=== PATIENT | male | born 1960 | race Caucasian/White ===

== ENCOUNTER 2024-02-25 16:07 | Emergency (ER) | payer MEDICARE, SELFPAY ==
--- NOTE | ~2024-02-25 | XR_ITS ---
EXAMINATION: XR hip RT 2V w AP pelvis DATE: 02/25/2024 16:33 INDICATION: Right hip pain. Fall. TECHNIQUE: An anteroposterior view of the pelvis and 2 views of right hip were obtained. COMPARISON: None. FINDINGS: There is a bipolar right hip hemiarthroplasty in near-anatomic alignment. No fracture. No p eriprosthetic lucency to suggest loosening or infection. There is mild left hip osteoarthritis. There is mild lumbar spondylosis. IMPRESSION: 1. Bipolar right hip hemiarthroplasty in near-anatomic alignment. 2. Mild left hip osteoarthritis. Reviewed, dictated and finalized at location A.
[2024-02-25 16:09] VITALS: BP 158/82; PULSE 75; RESP 16; TEMP 36.8; O2SAT 99
--- NOTE | 2024-02-25 16:37 | ED.FALL ---
HPI - Fall General Chief Complaint: Fall Stated Complaint: right hip injury post fall Time Seen by Provider: 02/25/24 16:15 History of Present Illness HPI Narrative: 63-year-old male history of right hip hemiarthroplasty in September presents to the emergency room for evaluation of right hip pain sustained in a mechanical ground level fall yesterday. Patient states that he tripped and fell landing on his right side. He has been experiencing hip pain since. Patient states he has been ambulatory since the injury. Related Data Allergies Allergy/AdvReac Type Severity Reaction Status Date / Time No Known Allergies Allergy Verified 02/25/24 16:20 Review of Systems Review of Systems: ROS unremarkable except for stated in the HPI Exam Narrative: GENERAL: Well-appearing, well-nourished, no physical limitations, and in no acute distress. HEAD: Normocephalic, atraumatic. EYES: Conjunctivae normal, PERRLA and EOMI. CHEST: Clear to auscultation. No respiratory distress. No wheezes rales or rhonchi. HEART: Regular rate and rhythm. No murmur heard. Normal peripheral pulses. EXTREMITIES: Right hip: +TTP over the greater trochanter, pain with hip adduction/abduction. No evidence of limb shortening or internal rotation SKIN: Warm, dry, no rash. No noted wounds NEURO: No focal deficits. Alert and oriented x3. MAEW. CN's II-XI intact bilaterally, normal gait PSYCH: Cooperative. Normal mood and affect. Course Vital Signs Vital signs: Vital Signs Temperature 36.8 C 02/25/24 16:09 Pulse Rate 75 02/25/24 16:09 Respiratory Rate 16 02/25/24 16:09 Blood Pressure 158/82 H 02/25/24 16:09 Pulse Oximetry 99 02/25/24 16:09 Temperature 36.8 C 02/25/24 16:09 Pulse Rate 75 02/25/24 16:09 Respiratory Rate 16 02/25/24 16:09 Blood Pressure 158/82 H 02/25/24 16:09 Pulse Oximetry 99 02/25/24 16:09 MDM - Fall Imaging Data Radiologist's impression: Impressions Hip/Pelvis X-Ray 02/25/24 16:33 IMPRESSION: 1. Bipolar right hip hemiarthroplasty in near-anatomic alignment. 2. Mild left hip osteoarthritis. Discharge Plan Discharge Clinical Impression: Contusion of hip, right Patient Disposition: Home, Self-Care Condition: Stable Instructions: Antibiotic Form, Contusion in Adults (ED) Prescriptions: New naproxen 500 mg tablet 500 mg PO BID Qty: 30 0RF Follow-up/Referrals: Chris,MD Angel [Primary Care Provider] - Time of Disposition: 16:45
== END 2024-02-25 16:55 | disposition home or self-care (01) ==
PROVIDERS: Emergency Provider Nurse Practitioner Family; PCP Internal Medicine
DX: S70.11XA Contusion of right thigh, initial encounter (principal); W18.30XA Fall on same level, unspecified, initial encounter
CPT/HCPCS: 73502; 99283

== ENCOUNTER 2024-07-10 09:31 | Emergency (ER) | payer MEDICARE, SELFPAY ==
[2024-07-10 09:38] VITALS: BP 132/82; PULSE 77; RESP 18; TEMP 36.4; O2SAT 99
--- NOTE | 2024-07-10 10:14 | ED.EYEPROB ---
HPI - Eye Problem General Chief complaint: Eye Problems Stated complaint: left eye redness, denies injury Time Seen by Provider: 07/10/24 10:01 History of Present Illness HPI Narrative: 4-year-old male with a history of hypertension, hyperlipidemia, diabetes presenting with red eye. States that yesterday he noticed a small area of dark red blood in the lateral aspect of his left eye. Today he woke up and the redness had spread so they came in for evaluation. States that maybe his vision seems a bit blurrier than normal. No contacts or glasses used. Denies recent trauma. No further complaints. Related Data Home Medications Medication Instructions Recorded Confirmed aspirin 81 mg capsule 81 mg PO DAILY 03/08/24 atorvastatin 80 mg tablet 80 mg PO DAILY 03/08/24 carvedilol 6.25 mg tablet 6.25 mg PO Q12H 03/08/24 lisinopril 40 mg tablet 40 mg PO DAILY 03/08/24 metformin 500 mg tablet 500 mg PO BID 03/08/24 naproxen 500 mg tablet 500 mg PO BID PRN 03/08/24 Allergies Allergy/AdvReac Type Severity Reaction Status Date / Time No Known Allergies Allergy Verified 07/10/24 09:45 Review of Systems Review of Systems: All systems reviewed & are unremarkable except as noted in HPI and below PMFSH Past Medical History Medical History Contusion of hip, right Diabetes History of stroke Hypertension Surgical History Surgical History History of right hip replacement Family History Family History Father Hypertension Heart disease Social History Social History Smoking status: Never smoker Alcohol intake: current Alcohol use details: occasional Substance use type: does not use Do You Feel Safe in your Home?: Yes Lack of Transportation: No Lack of Food: Never True Current Housing: I Have Housing Concerned About Future Housing: No Difficulty Paying Gas/Electric Bills: No Difficulty Paying for Meds: No Education: Trade/Vocational Certificate Difficulty w/ Childcare or Family Care: No Living arrangements: with family Occupation/Education: retired Exam Narrative: GENERAL: Well-appearing, well-nourished, and in no acute distress. HEAD: Normocephalic, atraumatic. EYES: PERRLA and EOMI. Left eye with lateral subconjunctival hemorrhage ENT: Mucous membranes moist. NECK: Supple. CHEST: No respiratory distress. HEART: Regular rate and rhythm EXTREMITIES: Normal range of motion SKIN: Warm, dry, no rash. NEURO: Alert and oriented x3. PSYCH: Normal mood and affect. Course Vital Signs Vital signs: Vital Signs Temperature 97.6 F 07/10/24 09:38 Pulse Rate 77 07/10/24 09:38 Respiratory Rate 18 07/10/24 09:38 Blood Pressure 132/82 07/10/24 09:38 Pulse Oximetry 99 07/10/24 09:38 Oxygen Delivery Room Air 07/10/24 09:38 Temperature 97.6 F 07/10/24 09:38 Pulse Rate 70 07/10/24 11:45 Respiratory Rate 18 07/10/24 11:45 Blood Pressure 129/77 07/10/24 11:45 Pulse Oximetry 99 07/10/24 11:45 Oxygen Delivery Room Air 07/10/24 09:38 MDM - Eye Problem MDM Narrative Medical decision making narrative: 64-year-old male presenting with left red eye. Vitals within normal limits. Exam remarkable for the above. Consistent with subconjunctival hemorrhage. Visual acuity 20/25 on the right, 20/50 on the left. Discussed appropriate supportive care and follow-up. Patient is agreeable with plan. Discharged in stable condition. Differential Diagnosis Differential diagnosis: Likely conjunctivitis and subconjunctival hemorrhage Medical Records Attestation: I reviewed the patient's medical records. Critical Care Time Critical Care Time Critical Care Time: No Discharge Plan Discharge Clinical Impression:
[2024-07-10 11:45] VITALS: BP 129/77; PULSE 70; RESP 18; O2SAT 99
== END 2024-07-10 11:47 | disposition home or self-care (01) ==
PROVIDERS: Emergency Provider Emergency Medicine; PCP Internal Medicine
DX: H11.31 Conjunctival hemorrhage, right eye (principal); I10 Essential (primary) hypertension; E78.5 Hyperlipidemia, unspecified; E11.9 Type 2 diabetes mellitus without complications; Z96.641 Presence of right artificial hip joint; Z86.73 Personal history of transient ischemic attack (TIA), and cerebral infarction without residual deficits; Z79.82 Long term (current) use of aspirin; Z79.84 Long term (current) use of oral hypoglycemic drugs; Z79.899 Other long term (current) drug therapy
CPT/HCPCS: 99282

== ENCOUNTER 2024-09-06 12:06 | Outpatient (CLI) | payer MEDICARE, SELFPAY ==
--- NOTE | ~2024-09-06 | DEXA_ITS ---
Bone Density Report Name: GABY PRICE Age: 64 Sex: Male Ethnicity: White Date of : 1960 Indication: prior fracture; Referring Provider: JESSICAEDE Prince Study: Bone densitometry was performed. Exam Date: September 06, 2024 Accession number: [id number] Bone Density: Region BMD T-score Z-score Classification AP Spine(L1-L4) 0.887 -1.9 -1.1 Osteopenia Femoral Neck (Left) 0.629 -2.2 -1.1 Osteopenia Total Hip (Left) 0.903 -0.9 -0.3 Normal World Health Organization criteria for BMD impression classify patients as: Normal (T-score at or above -1.0), Osteopenia (T-score between -1.0 and -2.5), or Osteoporosis (T-score at or below -2.5). 10-year Fracture Risk: FRAX not reported because: Prior hip or vertebral fracture Clinical Information Provided by Patient: Have had a previous hip or vertebral fracture Has had a low trauma fracture Impression: The patient has low bone mass, based on the Left Femoral Neck T-score. The patient has risk factors, including: previous fracture. Discussion: INCREASED RISK OF FRACTURE DUE TO HISTORY OF LOW TRAUMA FRACTURE. The patient's previous fracture puts the patient at high risk of a future fracture. In untreated patients, the risk of osteoporotic fracture increases approximately two-fold for each 1.0 SD decrease in T-score. Low bone density is not the only risk factor for fracture; also consider factors such as patient's age, frailty or poor health, risk of falling, risk of injury, previous osteoporotic fracture, family history of osteoporosis, cigarette smoking, low body weight, etc. Not everyone with a low trauma fracture has osteoporosis; osteomalacia and other metabolic bone disorders should also be considered. Patients who have osteoporosis should be evaluated for specific diseases and conditions (secondary causes) that may cause or contribute to bone loss and fracture risk. National Osteoporosis Foundation (NOF) recommends pharmacologic intervention for patients with a prior low trauma hip or vertebral fracture regardless of BMD T-score. The patient should follow a healthful lifestyle (good nutrition with adequate calcium and vitamin D, and appropriate weight-bearing exercise). Follow-Up: Consider a repeat BMD and Vertebral Fracture Assessment (VFA) exam in 2 years or sooner if medically necessary, to reassess this patient's status. Reported by: ALISTAIR on 09/06/2024 12:44:00 PM. Reviewed, dictated and finalized at location AIam CONTRERAS
== END 2024-09-06 12:07 | disposition home or self-care (01) ==
LOC: ANHIMG 12:14
PROVIDERS: PCP Internal Medicine; Visit Provider Internal Medicine
DX: Z87.81 Personal history of (healed) traumatic fracture (principal); M85.88 Other specified disorders of bone density and structure, other site; M85.852 Other specified disorders of bone density and structure, left thigh
CPT/HCPCS: 77080

== ENCOUNTER 2025-08-13 16:23 | Emergency (ER) | payer MEDICARE, SELFPAY ==
--- NOTE | ~2025-08-13 | XR_ITS ---
EXAMINATION: XR hand RT min 3V, 08/13/2025 16:50 REWEAVER HISTORY: open fractures COMPARISON: No comparisons available. Findings: Severe osteopenia. There is a slightly displaced fracture of the distal aspect proximal phalanx fifth digit with a displaced fracture noted also of the proximal aspect intermediate phalanx fifth digit with significant soft tissue swelling and involvement of the adjacent joint space. Moderate to severe degenerative changes of the joints. Soft tissues unremarkable. Impression: Fractures detailed above. Underlying osteomyelitis with septic arthritis is not excluded. Contrast-enhanced MRI is suggested Reviewed, dictated and finalized at location P. AVER Impression: Fractures detailed above. Underlying osteomyelitis with septic arthritis is not excluded. Contrast-enhanced MRI is suggested
--- NOTE | 2025-08-13 16:29 | PC.NURSE ---
tourniquet applied in triage
[2025-08-13 16:32] VITALS: BP 145/86; PULSE 71; RESP 18; TEMP 36.4; O2SAT 98
--- NOTE | 2025-08-13 16:42 | PC.NURSE ---
Tourniquet removed by Dr. Zeng at 1642. Bleeding controlled at this time.
--- NOTE | 2025-08-13 16:49 | ED_ITS ---
HPI - Wound/Laceration General Chief Complaint: Wound/Laceration Stated Complaint: cut finger Time Seen by Provider: 08/13/25 16:44 History of Present Illness HPI narrative: Patient is a 65-year-old male who presents ER with lacerations to the right hand and digits 4 and 5 at the PIP dorsal aspect. Unable to extend at these joints. He maintains sensation distal to the laceration. Is unsure when his last tetanus shot was. He was using a circular table saw to do some woodwork when and he is unsure what happened but lost control and lacerated his fingers. He is not on any blood thinning agents. Related Data Home Medications ?Medication ?Instructions ?Recorded ?Confirmed ?Last Taken ?Type aspirin 81 mg capsule 81 mg PO DAILY 03/08/24 Unk nown History atorvastatin 80 mg tablet 80 mg PO DAILY 03/08/24 Unk nown History carvedilol 6.25 mg tablet 6.25 mg PO Q12H 03/08/24 Un known History lisinopril 40 mg tablet 40 mg PO DAILY 03/08/24 Unk nown History metformin 500 mg tablet 500 mg PO BID 03/08/24 Unkn own History naproxen 500 mg tablet 500 mg PO BID PRN 03/08/24 Unknown History Allergies Allergy/AdvReac Type Severity Reaction Status Date / Time No Known Allergies Allergy Verified 08/13/25 16:32 Review of Systems 2 Review of Systems: All systems reviewed & are unremarkable except as noted in HPI and below Constitutional: Constitutional: Reports no additional constitutional complaints Cardiovascular: Cardiovascular: Reports no additional cardiovascular complaints Musculoskeletal: Musculoskeletal: Reports no additional musculoskeletal complaints Integumentary/Breasts: Skin/Breast: Reports system reviewed and no additional complaints, except as docu Neurologic: Reports system reviewed and no additional complaints, except as documented [facility] Past Medical History Medical History Contusion of hip, right Diabetes History of stroke Hypertension Surgical History Surgical History History of right hip replacement Family History Family History Father Hypertension Heart disease Social History Social History Smoking status: Never smoker Alcohol intake: current Alcohol use details: occasional Substance use type: does not use Do You Feel Safe in your Home?: Yes Lack of Transportation: No Lack of Food: Never True Current Housing: I Have Housing Concerned About Future Housing: No Difficulty Paying Gas/Electric Bills: No Difficulty Paying for Meds: No Education: Trade/Vocational Certificate Difficulty w/ Childcare or Family Care: No Living arrangements: with family Occupation/Education: retired Exam 2 Narrative: GENERAL: Well-appearing, well-nourished, and in no acute distress. HEAD: Normocephalic, atraumatic. ENT: Mucous membranes moist. CHEST: Clear to auscultation. No respiratory distress. HEART: Regular rate and rhythm. Normal peripheral pulses. EXTREMITIES: Right hand with laceration to the dorsal aspect of fingers 4 and 5 at the the PIP. Unable to extend at these joints, sensation and cap refill preserved proximally and distally (volar/dorsal). Laceration results in open fracture and violation of the PIP joints of finger 4/5. SKIN: Warm, dry, wound described above. NEURO: Alert and oriented x3. PSYCH: Normal mood and affect. Course Course Emergency Course: Discussed with [facility]. Accepted by Dr. Martinez in the ER, also discussed with Dr. Farah with hand surgery. Patient was given IV Ancef 2 g IV as well as the a tetanus shot. Vital Signs Vital signs: Vital Signs Temperature 97.6 F 08/13/25 16:32 Pulse Rate 71 08/13/25 16:32 Respiratory Rate 18 08/13/25 16:32 Blood Pressure 145/86 H 08/13/25 16:32 Pulse Oximetry 98 08/13/25 16:32 Oxygen Delivery Room Air 08/13/25 16:32 Temperature 98.2 F 08/13/25 17:25 Pulse Rate 84 08/13/25 17:25 Respiratory Rate 16 08/13/25 17:25 Blood Pressure 134/53 L 08/13/25 17:25 Pulse Oximetry 95 08/13/25 17:25 Oxygen Delivery Room Air 08/13/25 16:32 MDM - Wound/Laceration Differential Diagnosis Differential diagnosis: Likely laceration and other (Open fracture, tendon injury, nerve injury, vascular injury) Lab Data Attestation: I reviewed the patient's lab results. 08/13/25 17:02 08/13/25 17:02 Labs: Lab Results 08/13/25 08/13/25 08/13/25 Range/Units 17:02 17:02 17:02 WBC 9.8 (4.5-10.0) K/mm3 RBC 4.48 L (4.6-6.20) M/mm3 Hgb 14.1 (14.0-18.0) g/dL Hct 42.4 (42.0-52.0) % MCV 94.6 (80-100) fl MCH 31.5 (26-34) pg MCHC 33.3 (32-36) g/dl RDW 12.3 (11.5-14.5) % Plt Count 279 (150-375) k/mm3 MPV 10.3 (7.4-10.4) fl Immature Gran % (Auto) 0.3 (0-0.5) % Neut % (Auto) 69.2 (45.5-73.1) % Lymph % (Auto) 19.1 (18.3-44.2) % [place] % (Auto) 7.6 (2.6-8.5) % Eos % (Auto) 2.8 (0-4.4) % Baso % (Auto) 1.0 (0.2-1.2) % Lymph # (Auto) 1.88 (0.9-3.2) K/mm3 [place] # (Auto) 0.8 H (0.1-0.6) K/mm3 Eos # (Auto) 0.3 (0-0.3) K/mm3 Baso # (Auto) 0.1 (0.0-0.1) K/mm3 Abs Immat Gran (auto) 0.03 (0.00-0.031) K/mm3 Absolute Neuts (auto) 6.8 H (1.3-6.7) K/mm3 Absolute Nucleated RBC 0.000 (0.0-0.012) K/mm3 Nucleated RBC % 0.0 (0.0-0.2) % PT 13.1 Cancelled (11.1-14.7) Seconds INR 1.0 Cancelled APTT 26.8 (22.3-36.8) Seconds Sodium 138 (137-145) mmol/L Potassium 4.4 (3.4-5.0) mmol/L Chloride 107 (98-107) mmol/L Carbon Dioxide 22 (22-30) mmol/L Anion Gap 9 (4-12) mmol/L BUN 14 (9-20) mg/dL Creatinine 0.91 (0.7-1.3) mg/dL Estim Creat Clear Calc 73 ml/min Estimated GFR > 60 (59 - ) Glucose 110 (65-110) mg/dL Calcium 9.0 (8.4-10.2) mg/dL Total Bilirubin 1.7 H (0.2-1.3) mg/dL AST 33 (17-59) U/L ALT 29 (6-50) U/L Alkaline Phosphatase 70 (38-126) U/L Total Protein 7.1 (6.3-8.2) g/dL Albumin 4.1 (3.5-5.1) g/dL Imaging Data Radiologist's impression: ITS Impressions Hand X-Ray 08/13/25 16:56 Impression: Fractures detailed above. Underlying osteomyelitis with septic arthritis is not excluded. Contrast-enhanced MRI is suggested Critical Care Time Critical Care Time Critical Care Time: Yes Total Critical Care Time: 35 Discharge Plan Discharge Clinical Impression: Open fracture of finger of right hand, Disarticulation of finger excluding thumb, Injury of extensor tendon of right hand Patient Disposition: Acute Care Hospital Condition: Stable Patient Language: [place] Prescriptions: No Action aspirin 81 mg capsule 81 mg PO DAILY carvedilol 6.25 mg tablet 6.25 mg PO Q12H Rx Instructions: must administer with a meal/food metformin 500 mg tablet 500 mg PO BID lisinopril 40 mg tablet 40 mg PO DAILY atorvastatin 80 mg tablet 80 mg PO DAILY naproxen 500 mg tablet 500 mg PO BID PRN Follow-up/Referrals: Chris,MD Angel [Primary Care Provider]
[2025-08-13] MEDS: MORPHINE SULFATE (*CRX) 4 MG/ML INJ IV PUSH (16:53)
[2025-08-13] MEDS: ceFAZolin 2 GM in SODIUM CHLORIDE 0.9% IV 50 ML 100 ML IVPB (16:53)
[2025-08-13 17:09] LABS: Hematocrit 42.4 % (42.0-52.0); Hemoglobin 14.1 g/dL (14.0-18.0); Immature Granulocyte Percent A 0.3 % (0-0.5); Lymphocytes Absolute Auto 1.88 K/mm3 (0.9-3.2); Mean Corpuscular HGB Conc 33.3 g/dl (32-36); Mean Corpuscular Hemoglobin 31.5 pg (26-34); Mean Corpuscular Volume 94.6 fl (80-100); Nucleated Red Blood Cells Absolute Auto 0.000 K/mm3 (0.0-0.012); Nucleated Red Blood Cells Perc 0.0 % (0.0-0.2); Platelet Count Result 279 k/mm3 (150-375); Red Blood Count 4.48 M/mm3 (4.6-6.20); White Blood Count 9.8 K/mm3 (4.5-10.0)
[2025-08-13] MEDS: WATER FOR IRRIGATION, STERILE 500 ML BOTTLE (17:19)
[2025-08-13] MEDS: TETANUS,DIPHTHERIA,AC PERTUSSIS ADULT (0.5 ML) BOOSTRIX IM (17:19)
[2025-08-13 17:21] LABS: INR 1.0; Partial Thromboplastin Time 26.8 Seconds (22.3-36.8); Prothrombin Time 13.1 Seconds (11.1-14.7)
--- NOTE | 2025-08-13 17:22 | PC.NURSE ---
96% PULSE OX ON RIGHT LITTLE FINGER 96% PULSE OX ON RIGHT RING FINGER
[2025-08-13 17:25] VITALS: BP 134/53; PULSE 84; RESP 16; TEMP 36.8; O2SAT 95
[2025-08-13 17:36] LABS: Alanine Aminotransferase 29 U/L (6-50); Albumin Level 4.1 g/dL (3.5-5.1); Alkaline Phosphatase 70 U/L (38-126); Anion Gap 9 mmol/L (4-12); Aspartate Amino Transferase 33 U/L (17-59); Bilirubin,Total 1.7 mg/dL (0.2-1.3); Blood Urea Nitrogen 14 mg/dL (9-20); Calcium 9.0 mg/dL (8.4-10.2); Carbon Dioxide 22 mmol/L (22-30); Chloride 107 mmol/L (98-107); Estimated CRCL calculation 73 ml/min; Estimated Glomerular Filt Rate > 60; Glucose 110 mg/dL (65-110); Potassium 4.4 mmol/L (3.4-5.0); Sodium 138 mmol/L (137-145); Total Protein 7.1 g/dL (6.3-8.2)
[2025-08-13 18:21] VITALS: BP 119/71; PULSE 60; RESP 16; O2SAT 97
== END 2025-08-13 19:25 | disposition short-term general hospital (02) ==
PROVIDERS: Emergency Provider Emergency Medicine; PCP Internal Medicine
DX: S62.616B Displaced fracture of proximal phalanx of right little finger, initial encounter for open fracture (principal); S62.626B Displaced fracture of middle phalanx of right little finger, initial encounter for open fracture; S66.326A Laceration of extensor muscle, fascia and tendon of right little finger at wrist and hand level, initial encounter; S66.322A Laceration of extensor muscle, fascia and tendon of right middle finger at wrist and hand level, initial encounter; Z23 Encounter for immunization; I10 Essential (primary) hypertension; E11.9 Type 2 diabetes mellitus without complications; Z86.73 Personal history of transient ischemic attack (TIA), and cerebral infarction without residual deficits; Z96.641 Presence of right artificial hip joint; Z79.899 Other long term (current) drug therapy; Z79.82 Long term (current) use of aspirin; Z79.84 Long term (current) use of oral hypoglycemic drugs; W31.2XXA Contact with powered woodworking and forming machines, initial encounter
CPT/HCPCS: 36415; 73130; 80053; 85025; 85610; 85730; 90471; 90715; 96365; 96375; 99285; J0690; J2004; J2270; J7030

== ENCOUNTER 2025-09-06 11:44 | Outpatient (CLI) | payer MEDICARE, SELFPAY ==
--- OUTSIDE RECORDS SUMMARY | 2025-09-05 09:05 | XMS_ITS | Encounter Summary ---
Author Organization [facility] Address [address] [place] [address] Care Team Providers Care Slot Machine Key Person Name Role Phone Angel Perez MD Primary Care Provider [phone] Encounter Details Date Type Department Care Team (Latest Contact Info) Description 09/05/2025 9:05 AM RESIDENTIAL PROGRAM WORKER - 09/05/2025 11:59 PM [facility] Hospital Encounter [facility] Imaging Services - Radiology [address] [place] [address] Angel Liu MD [address] [place] [address] [place] [address] Plastic Surgery Discharge Disposition: Home or Self Care Social History Tobacco Use Types Packs/Day Years Used Date Smoking Tobacco: Never Smokeless Tobacco: Never Alcohol Use Standard Drinks/Week Comments Yes 0 (1 standard drink = 0.6 oz pur e alcohol) socially PHQ-2 Answer Date Recorded Patient Health Questionnaire-2 Score 3 08/22/2025 Sex and Gender Information Value Date Recorded Sex Assigned at Male 08/13/2025 8:05 PM RESIDENTIAL PROGRAM WORKER Legal Sex Male 3:30 AM CDT Gender Identity Not on file Sexual Orientation Not on file documented as of this encounter Functional Status * Is person deaf or have serious hearing difficulty? Answer Date of Assessment Author No 12/26/2018 10:45 AM CDT Liset Zaragoza RN * Is person blind or have serious difficulty seeing? Answer Date of Assessment Author No 12/26/2018 10:45 AM CDT Liset Zaragoza RN * Does person have serious difficulty walking/climbing stairs? Answer Date of Assessment Author Yes 12/26/2018 10:45 AM Liset Nevarez RN * Does person have difficulty dressing/bathing? Answer Date of Assessment Author Yes 12/26/2018 10:45 AM Liset Nevarez RN * Does person have difficulty doing errands alone? Answer Date of Assessment Author No 12/26/2018 10:45 AM Liset Nevarez RN documented as of this encounter Mental Status * Does person have difficulty concentrating/remembering/making decisions? Answer Entry Date Author No 12/26/2018 10:45 AM Liset Nevarez RN documented in this encounter Medications at Time of Discharge aspirin (ASPIRIN) 81 MG chew tablet Take 1 tablet by mouth once daily 02/11/2019 atorvastatin (LIPITOR) 80 MG tablet Take 1 tablet by mouth at bedtime 30 tablet 3 02/11/2019 carvedilol (COREG) 6.25 MG tablet Take 1 tablet by mouth every 12 hours 30 tablet 3 02/11/2019 cyanocobalamin (Vitamin B-12) 100 MCG tablet Take 1 (one) tablet by mouth once daily lisinopril (PRINIVIL; ZESTRIL) 40 MG tablet Take 1 tablet by mouth once daily 30 tablet 3 02/11/2019 metFORMIN (GLUCOPHAGE) 500 MG tablet metformin 500 mg tablet Take 1 tablet twice a day by oral route for 90 days. oxyCODONE-acetam inophen (Percocet) 5-325 MG tabletIndication s:Open displaced fracture of middle phalanx of right little finger, initial encounter,Lacera tion of right ring finger, foreign body presence unspecified, nail damage status unspecified, initial encounter,Open displaced fracture of middle phalanx of right ring finger, initial encounter Take 1 (one) tablet by mouth every 6 hours as needed for pain (caution: can cause sedation/consti pation) 10 tablet 08/14/2025 rosuvastatin (CRESTOR) 10 MG tablet every 24 hours vitamin D, ergocalciferol, (Drisdol) 1.25 MG (57136 UT) capsule Take 1 (one) capsule by mouth every 7 days (once a week) 06/13/2025 documented as of this encounter Plan of Treatment Upcoming Encounters Date Type Department Care Team (Late st Contact Info) Description 09/26/2025 9:15 AM RESIDENTIAL PROGRAM WORKER Office Visit [facility] - Plastic Surgery [address], [address] [place] [address] Angel Liu MD [address] [place] [address] documented as of this encounter Procedures Procedure Name Priority Date/Time Associated Diagnosis Comments XR HAND RIGHT 3VW OR MORE Routine 09/05/2025 9:28 AM RESIDENTIAL PROGRAM WORKER Closed displaced fracture of proximal phalanx of right little finger, initial encounter documented in this encounter Results * XR Hand Right 3Vw or More (09/05/2025 9:28 AM RESIDENTIAL PROGRAM WORKER) Anatomical Region Laterality Modality Wrist / Hand Computed Radiogr aphy 09/05/2025 10:0 5 AM RESIDENTIAL PROGRAM WORKER Narrative 09/05/2025 10:43 AM RESIDENTIAL PROGRAM WORKER PROCEDURE: XR HAND RIGHT 3VW OR MORE, DATE/TIME OF EXAM: 09/05/2025 9:28 AM, LOCATION [facility] INDICATION: [id number]: Closed displaced fracture of proximal phalanx of right little finger, initial encounter. FINDINGS/IMPRESSION: Since 08/13/2025 there appears to be increased bone resorption or bone destruction at the head of the proximal phalanx of the little finger and base of the middle phalanx of the little finger. There is persistent subluxation, seen best on oblique or lateral projections. There is associated adjacent soft tissue edema. There is mild soft tissue calcification which could represent healing callus formation within the soft tissues. Further evaluation with CT imaging could be obtained. There is a subtle radiolucency at the base of the middle phalanx of the ring finger with adjacent medial soft tissue callus formation. No new fracture or dislocation is seen. Degenerative change involving the first carpometacarpal and proximal distal interphalangeal articulations are stable. Edited by Leslie Fuentes on 09/05/2025 10:27 AM > Interpreting Provider: Tyler Ortiz MD on 09/05/2025 10:43 AM Procedure Note Tyler Ortiz MD - 09/05/2025 PROCEDURE: XR HAND RIGHT 3VW OR MORE, DATE/TIME OF EXAM: 59:28 AM, LOCATION [facility] INDICATION: [id number]: Closed displaced fracture of proximal phalanx of right little finger, initial encounter. FINDINGS/IMPRESSION: Since 08/13/2025 there appears to be increased bone resorption or bone destruction at the head of the proximal phalanx of the little finger and base of the middle phalanx of the little finger. There is persistent subluxation, seen best on oblique or lateral projections. There is associated adjacent soft tissue edema. There is mild soft tissue calcification which could represent healing callus formation within the soft tissues. Further evaluation with CT imaging could be obtained. There is a subtle radiolucency at the base of the middle phalanx of the ring finger with adjacent medial soft tissue callus formation. No new fracture or dislocation is seen. Degenerative change involving the first carpometacarpal and proximal distal interphalangeal articulations are stable. Edited by Leslie Fuentes on 09/05/2025 10:27 AM > Interpreting Provider: Tyler Ortiz MD on 09/05/2025 10:43 AM Angel Liu MD DIAGNOSTIC IMAGING [facility] Final Result documented in this encounter Visit Diagnoses Diagnosis Closed displaced fracture of proximal phalanx of right little finger, initial encounter documented in this encounter Care Teams Slot Machine Key Person Relationship Specialty Start Date End Date Angel Perez MD PCP - General 04/19/19 documented as of this encounter
--- OUTSIDE RECORDS SUMMARY | 2025-09-05 09:45 | XMS_ITS | Encounter Summary ---
Author Organization [facility] Address [address] [place] [address] Care Team Providers Care Treating Engineer Name Role Phone Angel Perez MD Primary Care Provider [phone] Reason for Visit * Reason Comments Follow-up ER FOLLOW UP: Seen a t ED on 08/13/25 Laceration of right little finger without damage to nail Encounter Details Date Type Department Care Team (Late st Contact Info) Description 09/05/2025 9:45 AM WOOD TOOL MAKER Office Visit [facility] - Plastic Surgery [address], [address] [place] [address] Angel Liu MD [facility] [place] [phone] Closed displaced fracture of proximal phalanx of right little finger, initial encounter (Primary Dx) Social History Tobacco Use Types Packs/Day Years Used Date Smoking Tobacco: Never Smokeless Tobacco: Never Tobacco Cessation:Counseling Given: Not Answered Alcohol Use Standard Drinks/Week Comments Yes 0 (1 standard drink = 0.6 oz pur e alcohol) socially PHQ-2 Answer Date Recorded Patient Health Questionnaire-2 Score 3 08/22/2025 Sex and Gender Information Value Date Recorded Sex Assigned at Male 08/13/2025 8:05 PM WOOD TOOL MAKER Legal Sex Male 3:30 AM CDT Gender Identity Not on file Sexual Orientation Not on file documented as of this encounter Last Filed Vital Signs Vital Sign Reading Time Taken Comments Blood Pressure 127/79 09/05/2025 9:38 AM WOOD TOOL MAKER Pulse 60 09/05/2025 9:38 AM WOOD TOOL MAKER Temperature 36.2 C (97.1 F) 09/05/2025 9:38 AM WOOD TOOL MAKER Respiratory Rate - - Oxygen Saturation 95% 09/05/2025 9:38 AM WOOD TOOL MAKER Inhaled Oxygen Concentration - - Weight 84.8 kg (187 lb) 09/05/2025 9:38 AM WOOD TOOL MAKER Height 170.2 cm (5' 7) 09/05/2025 9:38 AM WOOD TOOL MAKER Body Mass Index 29.29 09/05/2025 9:38 AM WOOD TOOL MAKER documented in this encounter Functional Status * Is person deaf or have serious hearing difficulty? Answer Date of Assessment Author No 12/26/2018 10:45 AM Liset Nevarez RN * Is person blind or have serious difficulty seeing? Answer Date of Assessment Author No 12/26/2018 10:45 AM Liset Nevarez RN * Does person have serious difficulty [...] Liset Nevarez RN documented in this encounter Progress Notes * Angel Liu MD - 09/05/2025 10:11 AM CST I personally interviewed and examined the patient and agree with the resident note as amended below. The patient comes in for follow-up of his right small finger and ring finger table saw injuries. Hehas been splinting. Of note, he has a history of a stroke and has pre-existing limited flexion of the fingers. BP 127/79 (BP Location: Left arm, Patient Position: Sitting, BP Cuff Size: Large adult) Pulse 60 Temp 97.1 ??F (36.2 ??C) (Temporal) Ht 1.702 m (5' 7) Wt 84.8 kg (187 lb) SpO2 95% On exam, the patient is well appearing and in no distress. The small finger is shortened and rotated. The ring and small fingers have healing lacerations. 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 X-ray shows destruction of the small finger PIP joint with displacement and shortening. There is a small unicortical fracture of the ring finger middle phalanx. In summary, the patient has a significant small finger injury. I discussed reduction, fusion of thePIP joint and pinning to improve alignment. I explained that without surgery the joint will fuse and the finger alignment will be abnormal, but it should heal. He declined surgery. I am going to havehim continue to see hand therapy for range or motion and strengthening of the thumb, index, middle,and ring fingers. He may benefit from PIP splinting of the middle finger for the swan neck deformity when the small finger is healed. He declined surgical intervention for the swan neck deformity at this time. I will see him back in 3-4 weeks with repeat x-rays. TOOL MAKER * Higinio Snyder MD - 09/05/2025 9:00 AM CST [facility] Progress Note Patient Name: David Stevenson Age/Gender: 65 year old male : 1960 Subjective - Treatment History/Interval History Treatment History 08/13/25: Right hand extensor zone 3 laceration repair to ring and small finger over proximal phalanx and middle phalanx with repair of extensor tendons (PRS to ED bedside) HPI: David Stevenson is a 65 year old male who presents for follow-up status post the above injury.Patient was last seen in clinic on 08/22/2025 at which we discussed continuing to wear splint. He has been compliant with wearing his splint and washing his hand daily with soap and water. He has not been applying any ointment over his lacerations. He does note some numbness to the small finger but this does not bother him. He is also not bothered by the angulation of his digit as he has had basically no function of his ring or small finger since his stroke 4 years ago. He denies any fevers, chills, redness, drainage or any other complaints. Objective - VS/PE Vital Signs: There were no vitals filed for this visit. There is no height or weight on file to calculate BMI. GEN: NAD. Responding to questions appropriately. Neuro: A&O. Follows x4. HEENT: Normocephalic, atraumatic. EOMIB. Sclera anicteric. CV: RRR. Resp: Non-labored respiratory effort on RA. No audible expiratory wheezes. Abd: Soft, ND. Right hand: Repaired lacerations over the dorsal aspect of the ring and small finger middle phalanxwith dissolvable sutures in place. Some crusting around lacerations present. No erythema, nontenderto palpation. No extensor lag present. Radial deviation of the small finger at the PIP joint. Limited flexion of ring and small fingers. 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 Labs/Imaging Recent Labs: Recent Labs Component Name 12/26/18 0439 WBC 14.8* HGB 15.5 HCT 47.0 Recent Labs Component Name 12/26/18 0025 NA 143 CL 110* CO2 20* BUN 20 CREATININE 1.0 Recent Labs Component Name 12/22/18 0435 PT 12.1 INR 0.9 Imaging: Right hand x-ray: Independently reviewed. Displaced fracture to the P1 head and P2 base of the small finger with interval healing worried about. Radial deviation of the distal segment. Unchanged alignment of ring finger P2 fracture A&P Assesment and Plan: 65 year old male who presents for follow up s/p the above injury. Discussed that at this time patients fracture appears to be healing in its displaced position. Discussed options for possible fusion given integrity of PIPJ, patient stating that given his past stroke and pre-morbid functionality of digit, he would like to avoid any surgery. We also discussed options to treat his MF [place] neck deform ity, pt declining this as well. Discussed will have him continue splinting the digit for 1-2 more weeks. Patient expressed understanding and agrees with the plan. F/u in 3 weeks Patient may contact our office in the interim with any additional questions/concerns. Patient seen and plan discussed with Dr. Liu. Higinio Snyder MD 09/05/2025 9:00 AM Cosigned by Angel Liu MD at 09/05/2025 3:17 PM WOOD TOOL MAKER TOOL MAKER TOOL MAKER documented in this encounter Plan of Treatment Upcoming Encounters Date Type Department Care Team (Late st Contact Info) Description 09/26/2025 9:15 AM WOOD TOOL MAKER Office Visit [facility] - Plastic Surgery [address], [address] [place] [address] Angel Liu MD [address] [place] [address] documented as of this encounter Results * XR Hand Right 3Vw or More (09/05/2025 9:28 AM WOOD TOOL MAKER) Anatomical Region Laterality Modality Wrist / Hand Computed Radiogr aphy 09/05/2025 10:0 5 AM WOOD TOOL MAKER Narrative 09/05/2025 10:43 AM WOOD TOOL MAKER PROCEDURE: XR HAND RIGHT 3VW OR MORE, DATE/TIME OF EXAM: 09/05/2025 9:28 AM, LOCATION [facility] INDICATION: S62.616A: Closed displaced fracture [...] MORE, DATE/TIME OF EXAM: 59:28 AM, LOCATION [facility] INDICATION: S62.616A: Closed displaced fracture [...] proximal phalanx of right little finger, initial encounter- Primary Closed displaced fracture of proximal phalanx of right little finger, initial encounter documented in this encounter Care Teams Treating Engineer Relationship Specialty Start Date End Date Angel Perez MD PCP - General 04/19/19 documented as of this encounter
--- NOTE | ~2025-09-06 | DEXA_ITS ---
Bone Density Report Name: GABY PRICE Age: 65 Sex: Male Ethnicity: White Date of : 1960 Indication: osteopenia; prior fracture; Referring Provider: JESSICA*EDE Mcmillan Study: Bone densitometry was performed. Exam Date: September 06, 2025 Accession number: [id number] Bone Density: Region BMD T-score Z-score Classification AP Spine(L1-L4) 0.919 -1.6 -0.7 Osteopenia Femoral Neck (Left) 0.645 -2.1 -1.0 Osteopenia Total Hip (Left) 0.895 -0.9 -0.3 Normal World Health Organization criteria for BMD impression classify patients as: Normal (T-score at or above -1.0), Osteopenia (T-score between -1.0 and -2.5), or Osteoporosis (T-score at or below -2.5). 10-year Fracture Risk: FRAX not reported because: Prior hip or vertebral fracture Previous Exams: Region Exam Age BMD T-score BMD Change BMD Change Date g/cm2 vs Baseline vs Previous AP Spine (L1-L4) 09/06/2025 65 0.919 -1.6 0.032 (3.6%)* 0.032 (3.6%)* 09/06/2024 64 0.887 -1.9 Total Hip(Left) 09/06/2025 65 0.895 -0.9 -0.008 (-0.9%) -0.008 (-0.9%) 09/06/2024 64 0.903 -0.9 *Denotes significance at 95% confidence level, LSC for AP Spine = 0.022 g/cm2, LSC for Total Hip = 0.027 g/cm2 Clinical Information Provided by Patient: Have had a previous hip or vertebral fracture Has had a low trauma fracture Has used the following medications: Vitamin D Patient maximum height was 67 No regular weight bearing exercise Drinks caffeinated beverages Impression: The patient has low bone mass, based on the Left Femoral Neck T-score. The patient has risk factors, including: previous fracture. No significant bone loss was observed. Discussion: INCREASED RISK OF FRACTURE DUE TO HISTORY OF LOW TRAUMA FRACTURE. The patient's previous fracture puts the patient at high risk of a future fracture. In untreated patients, the risk of osteoporotic fracture increases approximately two-fold for each 1.0 SD decrease in T-score. Low bone density is not the only risk factor for fracture; also consider factors such as patient's age, frailty or poor health, risk of falling, risk of injury, previous osteoporotic fracture, family history of osteoporosis, cigarette smoking, low body weight, etc. Not everyone with a low trauma fracture has osteoporosis; osteomalacia and other metabolic bone disorders should also be considered. Patients who have osteoporosis should be evaluated for specific diseases and conditions (secondary causes) that may cause or contribute to bone loss and fracture risk. National Osteoporosis Foundation (NOF) recommends pharmacologic intervention for patients with a prior low trauma hip or vertebral fracture regardless of BMD T-score. The patient should follow a healthful lifestyle (good nutrition with adequate calcium and vitamin D, and appropriate weight-bearing exercise). Follow-Up: Consider a repeat BMD and Vertebral Fracture Assessment (VFA) exam in 2 years or sooner if medically necessary, to reassess this patient's status. Reported by: STAR on 09/06/2025 12:34:00 PM. Reviewed, dictated and finalized at location A.
--- NOTE | ~2025-09-06 | US_ITS ---
ULTRASOUND ABDOMEN LIMITED (RIGHT UPPER QUADRANT) Clinical History: Elevated bilirubin Comparison: None Technique: Right upper quadrant sonography Findings: Liver: Normal size. Normal echotexture. No intrahepatic biliary ductal dilatation. Normal hepatopedal flow main portal vein. Common Duct: 7 mm. Gallbladder: Stones. No wall thickening. No pericholecystic fluid. Negative sonographic White's sign per technologist report. Pancreas: Mostly obscured by bowel gas. IMPRESSION: 1. Gallstones. No evidence of cholecystitis. 2. No intrahepatic biliary duct dilatation. Reviewed, dictated and finalized at location R. H THERAPIST
--- OUTSIDE RECORDS SUMMARY | 2025-09-06 14:05 | XMS_ITS | Clinical Summary ---
Author Organization [facility] [employer] Address [address] [facility] [place] [address] Care Team Providers Care Crane Chaser Name Role Phone Angel Perez MD Primary Care Provider [phone] Source Comments [facility] [employer],non-owned Affiliates and Associated Physician Practices is amultiple site organization consisting of ambulatory clinics and hospital sitesin [place], [place], [place] and [place]. This disclosure is being madepursuant to the Care Everywhere program and may not contain all information available regarding this patient. Last updated 18.[facility] [employer] Allergies No known active allergies Medications * Be aware that medications may not be up to date on this document. Alwaysverify current medications with the patient. aspirin (ASPIRIN) 81 MG chew tablet Take 1 tablet by mouth once daily 9 Active atorvastatin (LIPITOR) 80 MG tablet Take 1 tablet by mouth at bedtime 30 tablet 3 9 Active carvedilol (COREG) 6.25 MG tablet Take 1 tablet by mouth every 12 hours 30 tablet 3 9 Active lisinopril (PRINIVIL; ZESTRIL) 40 MG tablet Take 1 tablet by mouth once daily 30 tablet 3 9 Active metFORMIN (GLUCOPHAGE) 500 MG tablet metformin 500 mg tablet Take 1 tablet twice a day by oral route for 90 days. Active rosuvastatin (CRESTOR) 10 MG tablet every 24 hours Activ e oxyCODONE-aceta minophen (Percocet) 5-325 MG tabletIndicatio ns:Open displaced fracture of middle phalanx of right little finger, initial encounter,Lacer ation of right ring finger, foreign body presence unspecified, nail damage status unspecified, initial encounter,Open displaced fracture of middle phalanx of right ring finger, initial encounter Take 1 (one) tablet by mouth every 6 hours as needed for pain (caution: can cause sedation/const ipation) 10 tablet 5 Active vitamin D, ergocalciferol, (Drisdol) 1.25 MG (22706 UT) capsule Take 1 (one) capsule by mouth every 7 days (once a week) 5 Active cyanocobalamin (Vitamin B-12) 100 MCG tablet Take 1 (one) tablet by mouth once daily Active amLODIPine (NORVASC) 10 MG tablet Take 1 tablet by mouth once daily 30 tablet 3 9 025 Discontinu ed(List Clean-Up) doxycycline monohydrate 100 MG capsule Take 1 (one) capsule by mouth every 12 hours for 10 days May substitute hyclate for monohydrate. 20 capsule 5 025 Active Problems Problem Noted Date Diagnosed Date Weakness 12/22/2018 Right hemiparesis 12/22/2018 Encounters Date Type Department Care Team Description 09/05/2025 9:45 AM MODERN AND CONTEMPORARY ART CURATOR Office Visit [facility] - Plastic Surgery [id number] [place] [address] Angel Liu MD Closed displaced fracture of proximal phalanx of right little finger, initial encounter (Primary Dx) 09/05/2025 9:05 AM MODERN AND CONTEMPORARY ART CURATOR - 09/05/2025 11:59 PM MODERN AND CONTEMPORARY ART CURATOR Hospital Encounter [facility] Imaging Services - Radiology [address] [place] [address] Angel Liu MD Plastic Surgery Discharge Disposition: Home or Self Care 09/05/2025 Travel 08/22/2025 1:00 PM MODERN AND CONTEMPORARY ART CURATOR - 08/22/2025 11:59 PM MODERN AND CONTEMPORARY ART CURATOR Hospital Encounter [facility] OT [address] [place] [address] Genna Borden, Snow Brown, OT Discharge Disposition: Home or Self Care 08/22/2025 11:00 AM MODERN AND CONTEMPORARY ART CURATOR Office Visit [facility] - Plastic Surgery [address] [facility] [place] [address] Genna Borden PA-C Right hand pain (Primary Dx); Weakness; Closed displaced fracture of proximal phalanx of right little finger, initial encounter; Closed displaced fracture of middle phalanx of right little finger, initial encounter; Closed displaced fracture of middle phalanx of right ring finger, initial encounter 08/15/2025 Travel 08/13/2025 7:43 PM MODERN AND CONTEMPORARY ART CURATOR - 08/14/2025 12:51 AM [facility] Emergency [facility] EMERGENCY DEPARTMENT [address] [place] [address] Jose Martinez, Laceration of right little finger without damage to nail, foreign body presence unspecified, initial encounter; Open displaced fracture of middle phalanx of right little finger, initial encounter; Laceration of right ring finger, foreign body presence unspecified, nail damage status unspecified, initial encounter; Open displaced fracture of middle phalanx of right ring finger, initial encounter Discharge Disposition: Home or Self Care from Last 3 Months Social History Tobacco Use Types Packs/Day Years Used Date Smoking Tobacco: Never Smokeless Tobacco: Never Tobacco Cessation:Counseling Given: Not Answered Alcohol Use Standard Drinks/Week Comments Yes 0 (1 standard drink = 0.6 oz pur e alcohol) socially PHQ-2 Answer Date Recorded Patient Health Questionnaire-2 Score 3 08/22/2025 Sex and Gender Information Value Date Recorded Sex Assigned at Male 08/13/2025 8:05 PM MODERN AND CONTEMPORARY ART CURATOR Legal Sex Male 3:30 AM CDT Gender Identity Not on file Sexual Orientation Not on file Last Filed Vital Signs Vital Sign Reading Time Taken Comments Blood Pressure 127/79 09/05/2025 9:38 AM MODERN AND CONTEMPORARY ART CURATOR Pulse 60 09/05/2025 9:38 AM MODERN AND CONTEMPORARY ART CURATOR Temperature 36.2 C (97.1 F) 09/05/2025 9:38 AM MODERN AND CONTEMPORARY ART CURATOR Respiratory Rate 18 08/13/2025 8:30 PM MODERN AND CONTEMPORARY ART CURATOR Oxygen Saturation 95% 09/05/2025 9:38 AM MODERN AND CONTEMPORARY ART CURATOR Inhaled Oxygen Concentration - - Weight 84.8 kg (187 lb) 09/05/2025 9:38 AM MODERN AND CONTEMPORARY ART CURATOR Height 170.2 cm (5' 7) 09/05/2025 9:38 AM MODERN AND CONTEMPORARY ART CURATOR Body Mass Index 29.29 09/05/2025 9:38 AM MODERN AND CONTEMPORARY ART CURATOR Plan of Treatment Upcoming Encounters Date Type Department Care Team (Late st Contact Info) Description 09/26/2025 9:15 AM MODERN AND CONTEMPORARY ART CURATOR Office Visit [facility] - Plastic Surgery [address], [address] [place] [address] Angel Liu MD [address] [facility] [address] [facility] [place] [address] Health Maintenance Due Date Last Done Comments COLOGUARD (AGES 45-75) - COLON CA SCREENING 1960 COLON MONITORING 1960 COLONOSCOPY - COLON CA SCREENING 1960 CT COLONOGRAPHY - COLON CA SCREENING 1960 Colorectal Cancer Screening 1960 FIT - COLON CA SCREENING 1960 FLEX SIG - COLON CA SCREENING 1960 HEPATITIS C SCREENING 04/02/1976 DTAP/TDAP/TD VACCINES (1 - Tdap) 1977 PNEUMOCOCCAL VACCINE 50+ (1 of 1 - PCV) 2008 Respiratory Syncytial Virus (RSV) Vaccine Pt: or over 60 yrs (1 - Risk 50-74 years 1-dose series) 2008 ZOSTER VACCINE (1 of 2) 2008 MEDICARE AWV CALENDAR YEAR 2024 SCREENING FOR DIABETES 08/21/2025 9, 12/26/2018, 12/25/2018, Additional history exists COVID-19 VACCINE ( season) 2025 06/05/2025, 05/29/2024, 06/21/2022, Additional history exists INFLUENZA VACCINE Completed 06/05/2025, , 06/09/2023, Additional history exists DEPRESSION SCREENING Completed 08/22/2025 HEPATITIS B VACCINE Aged Out No longe r eligible based on patient's age to complete this topic HIB VACCINE Aged Out No longer eligi ble based on patient's age to complete this topic HPV VACCINE Aged Out No longer eligi ble based on patient's age to complete this topic MENINGOCOCCAL (Group B) VACCINE SHARED DECISION-MAKING Aged Out No longer eligible based on patient's age to complete this topic MENINGOCOCCAL GROUPS A/C/Y/W VACCINE Aged Out No longer eligible based on patient's age to complete this topic Medical Devices Implanted Type Area Solutions Operator Device Identifier Shelf Expiration Date Model / Serial / Lot Sys Crd Mntr Rvl Linq [employer] Ins - [id number] Implanted:Qty: 1 on 05/28/2019 by Petrona Badillo MD at [facility] Left: Chest [employer] 11/09/2019 LINQSYS / [id number] / Description:Loop Procedures Procedure Name Priority Date/Time Associated Diagnosis Comments XR HAND RIGHT 3VW OR MORE Routine 09/05/2025 9:28 AM MODERN AND CONTEMPORARY ART CURATOR Closed displaced fracture of proximal phalanx of right little finger, initial encounter XR HAND RIGHT 3VW OR MORE STAT 08/13/2025 8:25 PM MODERN AND CONTEMPORARY ART CURATOR Laceration of right little finger without damage to nail, foreign body presence unspecified, initial encounter Open displaced fracture of middle phalanx of right little finger, initial encounter Laceration of right ring finger, foreign body presence unspecified, nail damage status unspecified, initial encounter Open displaced fracture of middle phalanx of right ring finger, initial encounter BASIC METABOLIC PANEL (CALCIUM TOTAL) Routine 12/26/2018 12:25 AM CDT from Last 3 Months or Most Recently Relevant to Health Maintenance Results * XR Hand Right 3Vw or More (09/05/2025 9:28 AM MODERN AND CONTEMPORARY ART CURATOR) Only the most recent of2 resultswithin the time period is included. Anatomical Region Laterality Modality Wrist / Hand Computed Radiogr aphy 09/05/2025 10:0 5 AM MODERN AND CONTEMPORARY ART CURATOR Narrative 09/05/2025 10:43 AM MODERN AND CONTEMPORARY ART CURATOR PROCEDURE: XR HAND RIGHT 3VW OR MORE, DATE/TIME OF EXAM: 09/05/2025 9:28 AM, LOCATION [facility] INDICATION: [id number]: Closed displaced fracture [...] DATE/TIME OF EXAM: 59:28 AM, LOCATION [facility] INDICATION: [id number]: Closed displaced fracture [...] MD DIAGNOSTIC IMAGING ORDERA BLES Final Result * (ABNORMAL) BASIC METABOLIC PANEL (CALCIUM TOTAL) (12/26/2018 12:25 AM CDT) BUN 20 7 - 26 mg/dL 12/26/2018 1:01 AM [facility] Creatinine 1.0 0.6 - 1.2 mg/dL 12/26/2018 1:01 AM [facility] Sodium 143 136 - 145 mmol/L 12/26/2018 1:01 AM [facility] Potassium 3.6 3.5 - 4.5 mmol/L 12/26/2018 1:01 AM [facility] Chloride 110(H) 98 - 107 mmol/L 12/26/2018 1:01 AM [facility] CO2 20(L) 22 - 29 mmol/L 12/26/2018 1:01 AM [facility] Glucose 122(H) 70 - 115 mg/dL 12/26/2018 1:01 AM [facility] Calcium 9.4 8.4 - 10.2 mg/dL 12/26/2018 1:01 AM [facility] Anion Gap 17 8 - 18 12/26/2018 1:01 AM [facility] BUN/Creatinine Ratio 20 7 - 23 12/26/2018 1:01 AM [facility] Osmolality Calculated 300 270 - 300 mOsm/kg 12/26/2018 1:01 AM [facility] eGFR >60 >60 mL/min/1.7 3 m2 12/26/2018 1:01 AM [facility] Blood BLOOD SPECIMEN / Unknown Lab Venipuncture / Unknown 12/26/2018 12:25 AM CDT 12/26/2018 12:27 AM [facility] Yamila Trent MD LAB - CHEMISTRY ORDERABLES Final Result [facility] [address] [place] [address] from Last 3 Months or Most Recently Relevant to Health Maintenance Insurance AETNA MEDICARE ADV MEDICARE [facility] Advance Directives * Full Code (Latest Code Status on File) Date Activated Date Inactivated Comments 12/22/2018 3:25 PM 12/26/2018 1:24 PM Care Teams Crane Chaser Relationship Specialty Start Date End Date Angel Perez MD PCP - General 04/19/19
--- OUTSIDE RECORDS SUMMARY | 2025-09-06 14:05 | XMS_ITS | Encounter Summary ---
Author Organization [facility] Address [address] [place] [address] Care Team Providers Care Quiller Operator Name Role Phone Angel Perez MD Primary Care Provider [phone] Encounter Details Date Type Department Care Team (Latest Contact Info) Description 09/05/2025 Travel Social History Tobacco Use Types Packs/Day Years Used Date Smoking Tobacco: Never Smokeless Tobacco: Never Alcohol Use Standard Drinks/Week Comments Yes 0 (1 standard drink = 0.6 oz pur e alcohol) socially PHQ-2 Answer Date Recorded Patient Health Questionnaire-2 Score 3 08/22/2025 Sex and Gender Information Value Date Recorded Sex Assigned at Male 08/13/2025 8:05 PM 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 Legal Sex Male 3:30 AM CDT Gender [...] Entry Date Author No 12/26/2018 10:45 AM CDT Liset Zaragoza RN documented in this encounter Plan of Treatment Upcoming Encounters Date Type Department Care Team (Late st Contact Info) Description 09/26/2025 9:15 AM 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 Office Visit [facility] - Plastic Surgery [address], [address] [place] [address] Angel Liu MD [address] [place] [address] documented as of this encounter Visit Diagnoses Not on filedocumented in this encounter Care Teams Quiller Operator Relationship Specialty Start Date End Date Angel Perez MD PCP - General 04/19/19 documented as of this encounter
== END 2025-09-06 11:45 | disposition home or self-care (01) ==
PROVIDERS: PCP Internal Medicine; Visit Provider Internal Medicine
DX: M81.8 Other osteoporosis without current pathological fracture (principal); R17 Unspecified jaundice; K80.20 Calculus of gallbladder without cholecystitis without obstruction; M85.88 Other specified disorders of bone density and structure, other site; M85.852 Other specified disorders of bone density and structure, left thigh
CPT/HCPCS: 76705; 77080

== ENCOUNTER 2025-09-06 13:16 | Outpatient (CLI) | payer MEDICARE, SELFPAY ==
--- OUTSIDE RECORDS SUMMARY | 2025-09-05 09:05 | XMS_ITS | Encounter Summary ---
Author Organization [facility] Address [address] [place] [address] Care Team Providers Care Senior Private Client Advisor Name Role Phone Angel Perez MD Primary Care Provider [phone] Encounter Details Date Type Department Care Team (Latest Contact Info) Description 09/05/2025 9:05 AM HIDES AND SKINS COLORER - 09/05/2025 11:59 PM [facility] Hospital Encounter [facility] Imaging Services - Radiology [address] [place] [address] Angel Liu MD [address] [place] [address] [place] [address] Plastic Surgery Discharge Disposition: Home [...] Sex Assigned at Male 08/13/2025 8:05 PM HIDES AND SKINS COLORER Legal Sex Male 3:30 AM CDT Gender [...] hours vitamin D, ergocalciferol, (Drisdol) 1.25 MG (85459 UT) capsule Take 1 (one) capsule by mouth every 7 days (once a week) 06/13/2025 documented as of this encounter Plan of Treatment Upcoming Encounters Date Type Department Care Team (Late st Contact Info) Description 09/26/2025 9:15 AM HIDES AND SKINS COLORER Office Visit [facility] - Plastic Surgery [address], [address] [place] [address] Angel Liu MD [address] [place] [address] documented as of this encounter Procedures Procedure Name Priority Date/Time Associated Diagnosis Comments XR HAND RIGHT 3VW OR MORE Routine 09/05/2025 9:28 AM HIDES AND SKINS COLORER Closed displaced fracture of proximal phalanx of right little finger, initial encounter documented in this encounter Results * XR Hand Right 3Vw or More (09/05/2025 9:28 AM HIDES AND SKINS COLORER) Anatomical Region Laterality Modality Wrist / Hand Computed Radiogr aphy 09/05/2025 10:0 5 AM HIDES AND SKINS COLORER Narrative 09/05/2025 10:43 AM HIDES AND SKINS COLORER PROCEDURE: XR HAND RIGHT 3VW OR MORE, DATE/TIME OF EXAM: 09/05/2025 9:28 AM, LOCATION [facility] INDICATION: S62.616A: Closed displaced fracture [...] on 09/05/2025 10:43 AM Procedure Note Tyler Oritz MD - 09/05/2025 PROCEDURE: XR HAND RIGHT 3VW OR MORE, DATE/TIME OF EXAM: 59:28 AM, LOCATION [facility] INDICATION: S62.616A: Closed displaced fracture [...] encounter documented in this encounter Care Teams Senior Private Client Advisor Relationship Specialty Start Date End Date Angel Perez MD PCP - General 04/19/19 documented as of this encounter
--- OUTSIDE RECORDS SUMMARY | 2025-09-05 09:45 | XMS_ITS | Encounter Summary ---
Author Organization [facility] Address [address] [place] [address] Care Team Providers Care Registered Dental Assistant Name Role Phone Angel Perez MD Primary Care Provider [phone] Reason for Visit * Reason Comments Follow-up ER FOLLOW UP: Seen a t ED on 08/13/25 Laceration of right little finger without damage to nail Encounter Details Date Type Department Care Team (Late st Contact Info) Description 09/05/2025 9:45 AM BAD CLOTH CHECKER Office Visit [facility] - Plastic Surgery [address], [address] [place] [address] Angel Liu MD [facility] [place] [address] Closed displaced fracture of proximal phalanx of [...] Sex Assigned at Male 08/13/2025 8:05 PM BAD CLOTH CHECKER Legal Sex Male 3:30 AM CDT Gender Identity Not on file Sexual Orientation Not on file documented as of this encounter Last Filed Vital Signs Vital Sign Reading Time Taken Comments Blood Pressure 127/79 09/05/2025 9:38 AM BAD CLOTH CHECKER Pulse 60 09/05/2025 9:38 AM BAD CLOTH CHECKER Temperature 36.2 C (97.1 F) 09/05/2025 9:38 AM BAD CLOTH CHECKER Respiratory Rate - - Oxygen Saturation 95% 09/05/2025 9:38 AM BAD CLOTH CHECKER Inhaled Oxygen Concentration - - Weight 84.8 kg (187 lb) 09/05/2025 9:38 AM BAD CLOTH CHECKER Height 170.2 cm (5' 7) 09/05/2025 9:38 AM BAD CLOTH CHECKER Body Mass Index 29.29 09/05/2025 9:38 AM BAD CLOTH CHECKER documented in this encounter Functional Status * [...] back in 3-4 weeks with repeat x-rays. CLOTH CHECKER * Higinio Snyedr MD - 09/05/2025 9:00 AM CST PLASTIC [...] also discussed options to treat his MF [place] neck deform ity, pt declining this as [...] Angel Liu MD at 09/05/2025 3:17 PM BAD CLOTH CHECKER CLOTH CHECKER CLOTH CHECKER documented in this encounter Plan of Treatment Upcoming Encounters Date Type Department Care Team (Late st Contact Info) Description 09/26/2025 9:15 AM BAD CLOTH CHECKER Office Visit [facility] - Plastic Surgery [address], [address] [place] [address] Angel Liu MD [address] [place] [address] documented as of this encounter Results * XR Hand Right 3Vw or More (09/05/2025 9:28 AM BAD CLOTH CHECKER) Anatomical Region Laterality Modality Wrist / Hand Computed Radiogr aphy 09/05/2025 10:0 5 AM BAD CLOTH CHECKER Narrative 09/05/2025 10:43 AM BAD CLOTH CHECKER PROCEDURE: XR HAND RIGHT 3VW OR MORE, DATE/TIME OF EXAM: 09/05/2025 9:28 AM, LOCATION [facility] INDICATION: S62.616A: Closed displaced fracture of proximal [...] MORE, DATE/TIME OF EXAM: 59:28 AM, LOCATION [facility] INDICATION: S62.616A: Closed displaced fracture of proximal [...] encounter documented in this encounter Care Teams Registered Dental Assistant Relationship Specialty Start Date End Date Angel Preez MD PCP - General 04/19/19 documented as of this encounter
--- OUTSIDE RECORDS SUMMARY | 2025-09-06 15:22 | XMS_ITS | Encounter Summary ---
Author Organization [facility] Address [address] [facility] [place] [address] Care Team Providers Care Roof Mechanic Name Role Phone Angel Perez MD Primary Care Provider [phone] Encounter Details Date Type Department Care Team [...] Sex Assigned at Male 08/13/2025 8:05 PM HOG TRADER Legal Sex Male 3:30 AM CDT Gender [...] st Contact Info) Description 09/26/2025 9:15 AM HOG TRADER Office Visit [facility] - Plastic Surgery [address], [address] [place] [address] Angel Liu MD [address] [place] [address] documented as of this encounter Visit Diagnoses Not on filedocumented in this encounter Care Teams Roof Mechanic Relationship Specialty Start Date End Date Angel Perez MD PCP - General 04/19/19 documented as of this encounter
--- OUTSIDE RECORDS SUMMARY | 2025-09-06 15:22 | XMS_ITS | Clinical Summary ---
Author Organization [facility] [employer] Address [address] [place] [address] Care Team Providers Care Tinner Automatic Name Role Phone Angel Perez MD Primary Care Provider [phone] Source Comments [facility] [employer],non-owned Affiliates and Associated Physician Practices is amultiple site organization consisting of ambulatory clinics and hospital sitesin [place], [place], [place] and [place]. This disclosure is being madepursuant to the Care Everywhere program and may not contain all information available regarding this patient. Last updated 18.[facility] [employer] Allergies No known active allergies Medications * [...] Active vitamin D, ergocalciferol, (Drisdol) 1.25 MG (07040 UT) capsule Take 1 (one) capsule by [...] Department Care Team Description 09/05/2025 9:45 AM A P SUPERVISOR Office Visit [facility] - Plastic Surgery [facility] [place] [address] Angel Liu MD Closed displaced fracture of proximal phalanx of right little finger, initial encounter (Primary Dx) 09/05/2025 9:05 AM A P SUPERVISOR - 09/05/2025 11:59 PM A P SUPERVISOR Hospital Encounter [facility] Health Imaging Services - Radiology [address] [place] [address] Angel Liu MD Plastic Surgery Discharge Disposition: Home or Self Care 09/05/2025 Travel 08/22/2025 1:00 PM A P SUPERVISOR - 08/22/2025 11:59 PM A P SUPERVISOR Hospital Encounter [facility] OT [address] [place] [address] Genna Borden, [place] Brown, OT Discharge Disposition: Home or Self Care 08/22/2025 11:00 AM A P SUPERVISOR Office Visit [facility] - Plastic Surgery [address] [facility] [place] [address] Genna Borden PA-C Right hand pain (Primary Dx); Weakness; Closed displaced fracture of proximal phalanx of right little finger, initial encounter; Closed displaced fracture of middle phalanx of right little finger, initial encounter; Closed displaced fracture of middle phalanx of right ring finger, initial encounter 08/15/2025 Travel 08/13/2025 7:43 PM A P SUPERVISOR - 08/14/2025 12:51 AM [facility] Emergency [facility] EMERGENCY DEPARTMENT [address] [place] [address] Jose Martinez, Laceration of right little finger [...] Sex Assigned at Male 08/13/2025 8:05 PM A P SUPERVISOR Legal Sex Male 3:30 AM CDT Gender Identity Not on file Sexual Orientation Not on file Last Filed Vital Signs Vital Sign Reading Time Taken Comments Blood Pressure 127/79 09/05/2025 9:38 AM A P SUPERVISOR Pulse 60 09/05/2025 9:38 AM A P SUPERVISOR Temperature 36.2 C (97.1 F) 09/05/2025 9:38 AM A P SUPERVISOR Respiratory Rate 18 08/13/2025 8:30 PM A P SUPERVISOR Oxygen Saturation 95% 09/05/2025 9:38 AM A P SUPERVISOR Inhaled Oxygen Concentration - - Weight 84.8 kg (187 lb) 09/05/2025 9:38 AM A P SUPERVISOR Height 170.2 cm (5' 7) 09/05/2025 9:38 AM A P SUPERVISOR Body Mass Index 29.29 09/05/2025 9:38 AM A P SUPERVISOR Plan of Treatment Upcoming Encounters Date Type Department Care Team (Late st Contact Info) Description 09/26/2025 9:15 AM A P SUPERVISOR Office Visit [facility] - Plastic Surgery [address] [place] [address] Angel Liu MD [address] [facility] [address] [facility] [place] [id number] Health Maintenance Due Date Last Done Comments [...] this topic Medical Devices Implanted Type Area Repair Department Supervisor Device Identifier Shelf Expiration Date Model / Serial / Lot Sys Crd Mntr Rvl Linq [employer] Ins - [id number] Implanted:Qty: 1 on 05/28/2019 by Petrona Badillo MD at [facility] Left: Chest [employer] 11/09/2019 LINQSYS / [id number] / Description:Loop Procedures Procedure Name Priority Date/Time Associated Diagnosis Comments XR HAND RIGHT 3VW OR MORE Routine 09/05/2025 9:28 AM A P SUPERVISOR Closed displaced fracture of proximal phalanx of right little finger, initial encounter XR HAND RIGHT 3VW OR MORE STAT 08/13/2025 8:25 PM A P SUPERVISOR Laceration of right little finger without damage [...] Right 3Vw or More (09/05/2025 9:28 AM A P SUPERVISOR) Only the most recent of2 resultswithin the time period is included. Anatomical Region Laterality Modality Wrist / Hand Computed Radiogr aphy 09/05/2025 10:0 5 AM A P SUPERVISOR Narrative 09/05/2025 10:43 AM A P SUPERVISOR PROCEDURE: XR HAND RIGHT 3VW OR MORE, [...] 7 - 26 mg/dL 12/26/2018 1:01 AM [facility] Creatinine 1.0 0.6 - 1.2 mg/dL 12/26/2018 1:01 AM [facility] Sodium 143 136 - 145 mmol/L 12/26/2018 1:01 AM [facility] Potassium 3.6 3.5 - 4.5 mmol/L 12/26/2018 1:01 AM [facility] Chloride 110(H) 98 - 107 mmol/L 12/26/2018 1:01 AM [facility] CO2 20(L) 22 - 29 mmol/L 12/26/2018 1:01 AM [facility] Glucose 122(H) 70 - 115 mg/dL 12/26/2018 1:01 AM [facility] Calcium 9.4 8.4 - 10.2 mg/dL 12/26/2018 1:01 AM [facility] Anion Gap 17 8 - 18 12/26/2018 1:01 AM [facility] BUN/Creatinine Ratio 20 7 - 23 12/26/2018 1:01 AM [facility] Osmolality Calculated 300 270 - 300 mOsm/kg 12/26/2018 1:01 AM [facility] eGFR >60 >60 mL/min/1.7 3 m2 12/26/2018 1:01 AM [facility] Blood BLOOD SPECIMEN / Unknown Lab Venipuncture / Unknown 12/26/2018 12:25 AM CDT 12/26/2018 12:27 [address] [facility] Yamila Trent MD LAB - CHEMISTRY ORDERABLES Final Result [facility] [address] [place] [address] from Last 3 Months or Most Recently Relevant to Health Maintenance Insurance AETNA MEDICARE ADV MEDICARE [facility] Advance Directives * Full Code (Latest Code Status on File) Date Activated Date Inactivated Comments 12/22/2018 3:25 PM 12/26/2018 1:24 PM Care Teams Tinner Automatic Relationship Specialty Start Date End Date Angel Perez MD PCP - General 04/19/19
== END 2025-09-06 13:17 | disposition home or self-care (01) ==
LOC: ANHLAB 13:19
PROVIDERS: PCP Internal Medicine; Visit Provider Internal Medicine
DX: R17 Unspecified jaundice (principal)
CPT/HCPCS: 36415; 83010; 83615